=== PATIENT | female | born 1975 | race Caucasian/White ===

== ENCOUNTER 2017-12-17 17:48 | Emergency (ER) | payer OTHER ==
[2017-12-17 18:12] VITALS: BP 103/52
[2017-12-17] MEDS ORDERED: HYDROcodone/ACETAMIN 5-325 MG* 1 TAB PO ONE ×2 (20:08→20:29)
--- NOTE | 2017-12-17 20:08 | UC ---
[facility] HPI - HPI Summary HPI Summary: c/o pain on jaws for 2 days s/p surgery, on ibuprofen and tylenol to no avail - History of Current Complaint Chief Complaint: UCDentalProblem Stated Complaint: DENTAL PAIN Time Seen by Provider: 12/17/17 19:05 Hx Last Menstrual Period: one week ago - Allergies/Home Medications Allergies/Adverse Reactions: Allergies Allergy/AdvReac Type Severity Reaction Status Date / Time No Known Allergies Allergy Verified 10/01/17 19:37 Home Medications: Home Medications Acetaminophen [Acetaminophen Extra Stren] 500 mg PO 12/17/17 [History] Amoxicillin PO (*) [Amoxicillin 500 MG CAP*] 500 mg PO TID 12/17/17 [History Confirmed 12/17/17] Ibuprofen [Advil] 800 mg PO QID 12/17/17 [History Confirmed 12/17/17] PMH/Surg Hx/FS Hx/Imm Hx - Surgical History Surgical History: Yes Surgery Procedure, Year, and Place: oral surgery - Family History Known Family History: Positive: None - Social History Alcohol Use: None Substance Use Type: None Substance Use Comment - Amount & Last Used: last taken on Wednesday02/23/14- percocet Smoking Status (MU): Heavy Every Day Tobacco Smoker Type: Cigarettes Review of Systems All Other Systems Reviewed And Are Negative: Yes Physical Exam Triage Information Reviewed: Yes Appearance: Well-Appearing Vital Signs: Initial Vital Signs Temp 98.1 F 12/17/17 18:07 Pulse 87 12/17/17 18:07 Resp 18 12/17/17 18:07 BP 103/52 12/17/17 18:07 Pulse Ox 99 12/17/17 18:07 Vital Signs Reviewed: Yes ENT: Positive: Pharynx normal, Dental tenderness - s/p b/l molar extraction Dental: Positive: Other: - s/p dental extraction molar Neck exam: Normal Respiratory Exam: Normal Cardiovascular Exam: Normal Dental Complaint Course/Dx - Course Course Of Treatment: Take pain medication as prescribed as needed. follow up with DMD in 2 days - Differential Dx/Diagnosis Provider Diagnoses: s/p dental extraction Discharge - Discharge Plan Condition: Stable Disposition: HOME Patient Education Materials: Toothache (ED) Referrals: Brenda Watts NP [Primary Care Provider] -
== END 2017-12-17 20:50 | disposition home or self-care (01) ==
LOC: UCEAST 17:48
DX: R68.84 Jaw pain (principal); K08.89 Other specified disorders of teeth and supporting structures; F17.210 Nicotine dependence, cigarettes, uncomplicated; Z98.890 Other specified postprocedural states
CPT/HCPCS: 99212; G0463